=== PATIENT | male | born 1985 | race Caucasian/White ===

== ENCOUNTER 2023-10-16 09:17 | Emergency (ER) | payer MEDICAID ==
[~2023-10-16] VITALS: Ht 167.6 cm; Wt 94.5 kg
[2023-10-16 09:19] VITALS: O2SAT 100
[2023-10-16] MEDS: ACETAMINOPHEN 325MG TABLET PO ONE (10:28)
[2023-10-16 10:37] LABS: BASOPHILS % 0.2 % (0.0-2.0); EOSINOPHILS % 1.9 % (0.0-5.0); HEMATOCRIT. 46.1 % (42.0-52.0); HEMOGLOBIN. 15.4 g/dL (14.0-18.0); LYMPHOCYTES % 39.2 % (20.0-50.0); MEAN CORPUSCULAR HEMOGLOBIN 30.6 pg (28.0-32.0); MEAN CORPUSCULAR HGB CONC 33.4 g/dL (31.0-37.0); MEAN CORPUSCULAR VOLUME 91.4 fL (80.0-94.0); MEAN PLATELET VOLUME 8.7 fl (7.4-10.4); MONOCYTES % 7.2 % (2.0-8.0); NEUTROPHILS % 51.5 % (40.0-76.0); PLATELET 295 x1000/uL (130-400); RED BLOOD CELL COUNT 5.04 mill/uL (4.7-6.1); RED CELL DISTRIBUTION WIDTH 14.6 % (11.6-14.6); WHITE BLOOD COUNT 7.5 x1000/uL (4.5-11.0)
[2023-10-16 10:45] LABS: CHLORIDE 105 mEq/L (98-107); SODIUM 140 mEq/L (136-145)
[2023-10-16] MEDS ORDERED: AMLODIPINE 5MG TABLET PO ONE (10:45)
[2023-10-16 10:46] LABS: CARBON DIOXIDE 29 mEq/L (21-32)
[2023-10-16 10:47] LABS: CALCIUM 9.7 mg/dL (8.7-10.4)
[2023-10-16 10:52] LABS: CREATININE 0.9 mg/dL (0.6-1.3); GLUCOSE 112 mg/dL (70-105); UREA NITROGEN BLOOD 13 mg/dL (9-23)
[2023-10-16 10:53] LABS: ALANINE AMINOTRANSFERASE 46 IU/L (10-49); ASPARTATE AMINOTRANSFERASE 38 IU/L (<34)
[2023-10-16 10:54] LABS: ALBUMIN 4.5 g/dL (3.2-4.8); BILIRUBIN DIRECT 0.3 mg/dL (<=3.0); PROTEIN TOTAL 7.1 g/dL (6.0-8.3)
[2023-10-16] MEDS: AMLODIPINE 5MG TABLET PO NR (11:14)
[2023-10-16 11:39] LABS: TROPONIN I HIGH SENSITIVITY 10 ng/L (3.0-53)
[2023-10-16 13:00] VITALS: BP 144/96; PULSE 51; RESP 18; TEMP 98
== END 2023-10-16 13:02 | disposition home or self-care (01) ==
LOC: ER 09:17
DX: I10 Essential (primary) hypertension (principal); R00.1 Bradycardia, unspecified
CPT/HCPCS: 36415; 80048; 80076; 84484; 85025; 93005; 99284